=== PATIENT | male | born 1995 | race African-American/Black ===

== ENCOUNTER 2016-10-09 19:07 | Emergency (ER) | payer SELFPAY ==
[~2016-10-09] VITALS: Ht 172.7 cm; Wt 117.9 kg
[2016-10-09 19:37] VITALS: BP 123/80
--- NOTE | 2016-10-09 19:43 | PHYS DOC ---
Past Medical History Past Medical History: Asthma Past Surgical History: Other Additional Past Surgical Histo: L SHOULDER Alcohol Use: None Drug Use: None Adult General Chief Complaint Chief Complaint: FOREIGN BODY/EYES HPI HPI Patient is a 20 year old male presents to the emergency department stating that he was at work when eating when he was sweating quite a bit in his classes Falling off. He states that he took his glasses and hematocrit of his head continue to wean eat when he hit a rock flew up and hit him in the left eye. Patient states he had significant pain. He states that the light seems to be a little Dimmer on the left however he denies any blurred vision or difficulty seeing. Patient states that he has had clear drainage from the site. Review of Systems Review of Systems Constitutional: Denies fever or chills [] Eyes: Denies change in visual acuity, complaint of left eye redness and pain HENT: Denies nasal congestion or sore throat [] Respiratory: Denies cough or shortness of breath [] Cardiovascular: No additional information not addressed in HPI [] GI: Denies abdominal pain, nausea, vomiting, bloody stools or diarrhea [] : Denies dysuria or hematuria [] Musculoskeletal: Denies back pain or joint pain [] Integument: Denies rash or skin lesions [] Neurologic: Denies headache, focal weakness or sensory changes [] Endocrine: Denies polyuria or polydipsia [] Current Medications Current Medications Current Medications Medications (Trade) Dose Ordered Sig/Iveth Start Time Stop Time Status Last Admin Dose Admin Fluorescein Sodium (Ful-Lauren) 1 strip 1X ONCE 10/09/16 19:45 10/09/16 19:46 DC 10/09/16 19:48 1 STRIP Tetracaine HCl (Tetracaine) 1 drop 1X ONCE 10/09/16 19:45 10/09/16 19:46 DC 10/09/16 19:48 1 DROP Allergies Allergies Allergies Coded Allergies Type Severity Reaction Last Updated Verified No Known Drug Allergies 08/11/13 No Physical Exam Physical Exam Constitutional: Well developed, well nourished, no acute distress, non-toxic appearance. [] HENT: Normocephalic, atraumatic, bilateral external ears normal, oropharynx moist, no oral exudates, nose normal. [] Eyes: PERRLA, EOMI, conjunctiva red, clear discharge. [] Neck: Normal range of motion, no tenderness, supple, no stridor. [] Cardiovascular:Heart rate regular rhythm, no murmur [] Lungs & Thorax: Bilateral breath sounds clear to auscultation [] Skin: Warm, dry, no erythema, no rash. [] Extremities: No tenderness, no cyanosis, no clubbing, ROM intact, no edema. [] Neurologic: Alert and oriented X 3, normal motor function, normal sensory function, no focal deficits noted. [] Psychologic: Affect normal, judgement normal, mood normal. [] Current Patient Data Vital Signs Vital Signs Date Time Temp Pulse Resp B/P (MAP) Pulse Ox O2 Delivery O2 Flow Rate FiO2 10/09/16 19:37 97.9 63 18 100 Room Air 97.9 EKG EKG [] Radiology/Procedures Radiology/Procedures [] Course & Med Decision Making Course & Med Decision Making Pertinent Labs and Imaging studies reviewed. (See chart for details) Tetracaine 2 drops was placed into the left eye. Fluorescein was also placed into the eye with uptake noted at the 6:00 area. Patient will have the eye irrigated. He'll be discharged home in stable condition with eyedrops. Recommended following up with ophthalmology in the next 24 hours. Recommended Tylenol and ibuprofen for pain and discomfort. Recommended avoiding bright lights. Patient agrees with discharge instructions treatment regimens and follow -up recommendations. Signs and symptoms to return back to emergency department been provided. All questions and concerns been answered at patient's bedside. He was also encouraged to always wear his safety glasses. [] Dragon Disclaimer Dragon Disclaimer This electronic medical record was generated, in whole or in part, using a voice recognition dictation system. Departure Departure Impression: Primary Impression: Corneal abrasion, left Disposition: HOME, SELF-CARE Condition: STABLE Referrals: NO PCP (PCP) Timi CERDA MD Patient Instructions: Eye - Corneal Abrasion, [id number] Additional Instructions: Your eye exam revealed a corneal abrasion. Wear your safety glasses whenever you are weed eating or drinking any type yardwork. Medication as prescribed. Tylenol or ibuprofen for pain and discomfort. You may want to wear sunglasses to help with some of the pain and discomfort as well. Avoid bright lights. Follow-up with ophthalmology in the 4 hours. Return back to emergency prior signs symptoms of become worse. Scripts Ofloxacin (OCUFLOX) 5 Ml Drops 1-2 DROP OS BID, #[address] the drops in the left eye for the next 7 days Prov: DENI PERALTA APRN 10/09/16 Problem Qualifiers Primary Impression: Corneal abrasion, left Encounter type: initial encounter Qualified Codes: S05.02XA - Injury of conjunctiva and corneal abrasion without foreign body, left eye, initial encounter DENI PERALTA APRN Oct 09, 2016 19:43
[2016-10-09] MEDS ORDERED: TETRACAINE 0.5% OPHTH SOLUTION 4ML BOTTLE. OS ONE (19:45)
[2016-10-09] MEDS ORDERED: FLUORESCEIN OPHTH TEST STRIP. OS ONE (19:45)
[2016-10-09] MEDS ORDERED: OFLO5DRO OS (20:01)
[2016-10-09] MEDS ORDERED: DIPHTH,PERTUSS(ACELL),TET TOX 0.5 ML DISP.SYRIN. VAX IM ONE (20:15)
== END 2016-10-09 20:12 | disposition home or self-care (01) ==
LOC: ER 19:07
DX: S05.02XA Injury of conjunctiva and corneal abrasion without foreign body, left eye, initial encounter (principal); J45.909 Unspecified asthma, uncomplicated; W22.8XXA Striking against or struck by other objects, initial encounter; Y93.89 Activity, other specified; Y92.89 Other specified places as the place of occurrence of the external cause; Y99.8 Other external cause status
CPT/HCPCS: 90471; 90715; 99283-25